=== PATIENT | male | born 1975 | race Caucasian/White ===

== ENCOUNTER 2016-09-30 07:27 | Observation (INO) | payer BC ==
--- NOTE | 2016-09-30 08:03 | ERNOTE ---
Abdominal HPI - General Chief Complaint: Abdominal Pain Time Seen by Provider: 09/30/16 07:57 Source: patient Exam Limitations: no limitations - Immun/Allergies/Home Medications Immunizatons: IMMUNIZATION HX Immunizations Up to Date Yes History of Influenza Vaccine Yes Hx Pneumococcal Vaccination No Allergies/Adverse Reactions: Allergies No Known Allergies Allergy (Verified 09/30/16 07:43) Home Medications: HOME MEDICATIONS Cetirizine HCl [Wal-Zyr] 10 mg PO DAILY 09/30/16 [Last Taken Unknown] Cholecalciferol (Vitamin D3) [Vitamin D] 2,000 unit PO DAILY 09/30/16 [Last Taken Unknown] Gabapentin [Neurontin] 600 mg PO DAILY 09/30/16 [Last Taken Unknown] Insul NPH Hu Rec/Ins Rg Hu Rec [Novolin 70/30 100U/ml] 25 units SQ ACHS [Last Taken Unknown] Insulin Glargine,Hum.rec.anlog [Lantus] 50 units SC DAILY 09/30/16 [Last Taken Unknown] Losartan Potassium [Cozaar] 25 mg PO DAILY 09/30/16 [Last Taken Unknown] - History of Present Illness Narrative: Here for right lower quadrant abdominal pain for four days, in addition to loose stools and today diarrhea which patient states was watery. Abdominal pain is approximately 3-7 varying degrees based on movement denies any nausea or vomiting Review of Systems - Review of Systems Constitutional: Present: no symptoms reported EYE: Present: no symptoms reported ENT: Present: no symptoms reported Respiratory: Present: no symptoms reported Cardiology: Present: no symptoms reported Gastrointestinal/Abdominal: Present: See HPI Genitourinary: Present: no symptoms reported Musculoskeletal: Present: no symptoms reported - Patient's Past Medical History Patient History - Medical: Diabetes Type 1 Patient History - Cardiac/Respiratory: Hypertension Patient History - Cancer: No Hx of Cancer Patient History - Surgical Procedures: Back Surgery Patient History - Other: None - Social History Living Situations: home Abuse History: No History of abuse Psych History: No pertinent hx Smoking Status: Never smoker Alcohol Use: none Drug Use: none - Immunizations Immunizations Up to Date: Yes Hx Pneumococcal Vaccination: No History of Influenza Vaccine: Yes Physical Exam - Physical Exam General Appearance: Present: wd/wn, alert, no apparent distress Neck: Present: normal inspection Respiratory: Present: no respiratory distress, normal breath sounds, no accessory muscle use, chest nontender, lungs clear Cardiovascular/Chest: Present: regular rate, rhythm, no murmur, normal peripheral pulses Gastrointestinal/Abdominal: Present: normal bowel sounds, other - abdomen is diffusely tender but worse in the right lower quadrant of the abdomen patient has direct tenderness and rebound tenderness. He is not guarding bili is obese and examination is slightly difficult. ED Progress - Results and Orders Patient's Lab Results:: I have reviewed the patient's lab results. - Vital Signs Patient's Vital Signs:: I have reviewed the patient's vital signs. Vital Signs: Vital Signs 09/30/16 07:30 Temperature 36.6 C Pulse Rate 90 Respiratory 16 Rate Blood Pressure 122/77 O2 Sat by Pulse 98 Oximetry - CT/Ultrasound CT/Ultrasound Narrative: CT is read as acute appendicitis - Progress/Reassessment Chief Complaint: Abdominal Pain Plan - Plan Plan: PT has acute appendicitis and Dr. Khan was consulted regarding this patient and pt will be admitted for appendectomy Departure - Departure Clinical Impression: Acute appendicitis Qualifiers: Acute appendicitis type: unspecified acute appendicitis type Qualified Code(s) : K35.80 - Unspecified acute appendicitis Disposition: Home self-care Condition: Good Referrals: Loc Boswell MD [Primary Care Provider] -
--- OUTSIDE RECORDS SUMMARY | 2016-09-30 08:07 | XMS REPORT | Summary of Care ---
:1975 Author Organization [facility] Address [address] [place] [address] Care Team Providers Name Role Phone Loc Boswell Primary Care Physician Encounter Date(s): 08/10/16 - 08/10/16 [facility], [address] [place], [place] [address] Discharge Diagnosis: Type 2 diabetes mellitus with mild nonproliferative diabetic retinopathy with macular edema, right eye Discharge Disposition: 01 Discharged to Home or Self Care Attending Physician: Shay Campuzano MD Referring Physician: Shay Campuzano MD Vital Signs Most recent to oldest [Reference Range]: 1 Peripheral Pulse Rate [60-100 bpm] 88 bpm (08/10/16 10:29 AM) Blood Pressure [90-130/60-90 mmHg] 122/78mmHg (08/10/16 10:29 AM) Systolic Blood Pressure [90-130 mmHg] 126 mmHg (08/10/16 10:29 AM) Diastolic Blood Pressure [60-90 mmHg] 76 mmHg (08/10/16 10:29 AM) Mean Arterial Pressure, Cuff 93 mmHg (08/10/16 10:29 AM) Problem List Condition Effective Dates Status Health Status Informant Diabetes mellitus type 1(Confirmed) Active Hypertension(Confirmed) Active Allergies, Adverse Reactions, Alerts No Known Medication Allergies Medications cetirizine 10 mg oral tablet 1 tab(s), Oral, Daily, 0 Refill(s), Start Date: 06/30/16 16:07:00 CDT Start Date: 06/30/16 Status: OrderedClaritin 10 mg, 0 Refill(s), Start Date: 07/12/15 8:52:00 CDT Start Date: 07/12/15 Stop Date: 06/30/16 Status: CompletedEylea (office) 2 mg, Intravitreal, ONETIME, First Dose: 08/10/16 11:00:00 CDT, Stop Date: 08/10 11:00:00 CDT, Diagnosis: Type 2 diabetes mellitus with moderate nonproliferative diabetic retinopathy with macular edema, left eye Start Date: 08/10/16 Stop Date: 08/10/16 Status: Completedgabapentin 600 mg oral tablet 1 tab(s), Oral, TID, 0 Refill(s), Start Date: 07/12/15 8:51:00 CDT Start Date: 07/12/15 Status: OrderedLantus 50u, Subcutaneous, Daily, 0 Refill(s), Start Date: 06/30/16 16:06:00 CDT Start Date: 06/30/16 Status: Orderedlisinopril 5 mg oral tablet 1 tab(s), Oral, Daily, 0 Refill(s), Start Date: 07/12/15 8:51:00 CDT Start Date: 07/12/15 Stop Date: 06/30/16 Status: Completedmultivitamin 1 tab(s), Oral, Daily, 0 Refill(s), Start Date: 07/12/15 8:51:00 CDT Start Date: 07/12/15 Stop Date: 06/30/16 Status: CompletedNovoLIN 70/30 35u, Subcutaneous, BID, 0 Refill(s), Start Date: 06/30/16 16:06:00 CDT Start Date: 06/30/16 Status: OrderedNovoLIN 70/30 Subcutaneous, 0 Refill(s), Start Date: 07/12/15 8:53:00 CDT Start Date: 07/12/15 Status: OrderedViagra 100 mg oral tablet 1 tab(s), Oral, As Indicated, PRN erectile dysfunction, 1 hour before sexual activity, # 18 tab(s), 3 Refill(s), Start Date: 05/11/16 10:05:09 CDT, Pharmacy : [facility] Special Instructions: 1 hour before sexual activity Start Date: 05/11/16 Status: OrderedViagra 100 mg oral tablet 1 tab(s), Oral, As Indicated, PRN erectile dysfunction, 1 hour before sexual activity, # 6 tab(s), 0 Refill(s), Start Date: 02/24/16 15:18:00 PARENT 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, Pharmacy: [facility] Special Instructions: 1 hour before sexual activity Start Date: 02/24/16 Stop Date: 05/11/16 Status: CompletedVitamin D3 2000 intl units oral tablet 1 tab(s), Oral, TID, 0 Refill(s), Start Date: 06/30/16 16:07:00 CDT Start Date: 06/30/16 Status: Orderedvitamin E Oral, Daily, 0 Refill(s), Start Date: 07/12/15 8:52:00 CDT Start Date: 07/12/15 Stop Date: 06/30/16 Status: Completed Results No data available for this section Immunizations No data available for this section Procedures Procedure Date Related Diagnosis Body Site Repair of retina 10/28/15 Laminectomy with excision of herniated 2000 intervertebral disc, nucleus pulposus Social History No data available for this section Assessment and Plan No data available for this section
--- OUTSIDE RECORDS SUMMARY | 2016-09-30 08:07 | XMS REPORT | Summary of Care ---
:1975 Author Organization [facility] Address [address] [place] [address] Care Team Providers Name Role Phone Loc Boswell Primary Care Physician Encounter Date(s): 03/24/16 - 03/24/16 [facility], [address] [place], [place] [address] Discharge Diagnosis: Type 2 diabetes mellitus with moderate nonproliferative diabetic retinopathy with macular edema, bilateral Discharge Diagnosis: Macular puckering of retina Discharge Disposition: 01 Discharged to Home or Self Care Attending Physician: Shay Campuzano MD Referring Physician: Shay Campuzano MD Vital Signs Most recent to oldest [Reference Range]: 1 2 Peripheral Pulse Rate [60-100 bpm] 98 bpm (03/24/16 5:14 PM) Systolic Blood Pressure [90-130 mmHg] 133 mmHg 142 mmHg *HI* *HI* (03/24/16 5:14 PM) (03/24/16 5:14 PM) Diastolic Blood Pressure [60-90 mmHg] 87 mmHg 81 mmHg (03/24/16 5:14 PM) (03/24/16 5:14 PM) Mean Arterial Pressure, Cuff 102 mmHg (03/24/16 5:14 PM) Problem List Condition Effective Dates Status Health Status Informant Diabetes mellitus type 1(Confirmed) Active Hypertension(Confirmed) Active Allergies, Adverse Reactions, Alerts No Known Medication Allergies Medications Avastin (office) 1.25 mg, Intraocular, ONETIME, First Dose: 03/24/16 17:00:00 CLINICAL NURSING INSTRUCTOR, Stop Date: 17:00:00 CLINICAL NURSING INSTRUCTOR, Diagnosis: Type 2 diabetes mellitus with moderate nonproliferative diabetic retinopathy with macularedema, bilateral Start Date: 03/24/16 Stop Date: 03/24/16 Status: CompletedClaritin 10 mg, 0 Refill(s), Start Date: 07/12/15 8:52:00 CDT Start Date: 07/12/15 Status: Orderedgabapentin 600 mg oral tablet 1 tab(s), Oral, TID, 0 Refill(s), Start Date: 07/12/15 8:51:00 CDT Start Date: 07/12/15 Status: Orderedlisinopril 5 mg oral tablet 1 tab(s), Oral, Daily, 0 Refill(s), Start Date: 07/12/15 8:51:00 CDT Start Date: 07/12/15 Status: Orderedmultivitamin 1 tab(s), Oral, Daily, 0 Refill(s), Start Date: 07/12/15 8:51:00 CDT Start Date: 07/12/15 Status: OrderedNovoLIN 70/30 Subcutaneous, 0 Refill(s), Start Date: 07/12/15 8:53:00 CDT Start Date: 07/12/15 Status: OrderedViagra 100 mg oral tablet 1 tab(s), Oral, As Indicated, PRN erectile dysfunction, 1 hour before sexual activity, # 6 tab(s), 0 Refill(s), Start Date: 02/24/16 15:18:00 CLINICAL NURSING INSTRUCTOR, Pharmacy: [facility] Start Date: 02/24/16 Status: Orderedvitamin E Oral, Daily, 0 Refill(s), Start Date: 07/12/15 8:52:00 CDT Start Date: 07/12/15 Status: Ordered Results No data available for this section Immunizations No data available for this section Procedures Procedure Date Related Diagnosis Body Site Repair of retina 10/28/15 Laminectomy with excision of herniated 2000 intervertebral disc, nucleus pulposus Social History No data available for this section Assessment and Plan No data available for this section
--- OUTSIDE RECORDS SUMMARY | 2016-09-30 08:07 | XMS REPORT | Summary of Care ---
:1975 Author Organization [facility] Address [address] [place] [address] Care Team Providers Name Role Phone Loc Boswell Primary Care Physician Encounter Date(s): 06/02/16 - 06/02/16 [facility], [address] [place], [place] [address] Discharge Diagnosis: Type 2 diabetes mellitus with mild nonproliferative diabetic retinopathy with macular edema, right eye Discharge Disposition: 01 Discharged to Home or Self Care Attending Physician: Shay Campuzano MD Referring Physician: Shay Campuzano MD Vital Signs Most recent to oldest [Reference Range]: 1 Peripheral Pulse Rate [60-100 bpm] 91 bpm (06/02/16 11:35 AM) Blood Pressure [90-130/60-90 mmHg] 177/80mmHg *HI* (06/02/16 11:35 AM) Systolic Blood Pressure [90-130 mmHg] 109 mmHg (06/02/16 11:35 AM) Diastolic Blood Pressure [60-90 mmHg] 79 mmHg (06/02/16 11:35 AM) Mean Arterial Pressure, Cuff 112 mmHg (06/02/16 11:35 AM) Problem List Condition Effective Dates Status Health Status Informant Diabetes mellitus type 1(Confirmed) Active Hypertension(Confirmed) Active Allergies, Adverse Reactions, Alerts No Known Medication Allergies Medications Avastin (office) 1.25 mg, Intraocular, ONETIME, First Dose: 06/02/16 12:00:00 CDT, Stop Date: 09/11 12:00:00 CDT, Diagnosis: Type 2 diabetes mellitus with moderate nonproliferative diabetic retinopathy with macularedema, left eye Start Date: 06/02/16 Stop Date: 06/02/16 Status: CompletedClaritin 10 mg, 0 Refill(s), Start [...] Start Date: 05/11/16 10:05:09 CDT, [facility] Special Inst[facility]: 1 hour before sexual activity Start Date: 05/11/16 Status: OrderedViagra 100 mg oral tablet 1 tab(s), Oral, As Indicated, PRN erectile dysfunction, 1 hour before sexual activity, # 6 tab(s), 0 Refill(s), Start Date: 02/24/16 15:18:00 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
--- OUTSIDE RECORDS SUMMARY | 2016-09-30 08:07 | XMS REPORT | Summary of Care ---
:1975 Author Organization [facility] Address [address] [place] [address] [address] [place] [address] Care Team Providers Name Role Phone Loc Boswell Primary Care Physician Encounter Date(s): 06/30/16 - 06/30/16 [facility], [address] [place], [place] 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 Discharge Disposition: 01 Discharged to Home or Self Care Attending Physician: Shay Campuzano MD Referring Physician: Shay Campuzano MD Vital Signs No data available for this section Problem List Condition Effective Dates Status Health Status Informant Diabetes mellitus type 1(Confirmed) Active Hypertension(Confirmed) Active Allergies, Adverse Reactions, Alerts No Known Medication Allergies Medications cetirizine 10 mg oral tablet 1 tab(s), Oral, Daily, 0 Refill(s), Start Date: 06/30/16 16:07:00 CDT Start Date: 06/30/16 Status: OrderedClaritin 10 mg, 0 Refill(s), Start Date: 07/12/15 8:52:00 CDT Start Date: 07/12/15 Stop Date: 06/30/16 Status: Completedgabapentin 600 mg oral tablet 1 [...] Start Date: 05/11/16 10:05:09 CDT, [facility] : [facility] Special Instructions: 1 hour before sexual activity Start Date: 05/11/16 Status: OrderedViagra 100 mg oral tablet 1 tab(s), Oral, As Indicated, PRN erectile dysfunction, 1 hour before sexual activity, # 6 tab(s), 0 Refill(s), Start Date: 02/24/16 15:18:00 PETROPHYSICAL ENGINEER, Pharmacy: [facility] Special Instructions: 1 hour before sexual [...]
--- OUTSIDE RECORDS SUMMARY | 2016-09-30 08:07 | XMS REPORT | Summary of Care ---
:1975 Author Organization [facility] Address [address] [place] [address] Care Team Providers Name Role Phone Loc Boswell Primary Care Physician Encounter Date(s): 05/05/16 - 05/05/16 [facility], [address] [place], [place] [address] Discharge Diagnosis: Type 2 diabetes mellitus with moderate nonproliferative diabetic retinopathy with macular edema, left eye Discharge Diagnosis: Type 2 diabetes mellitus with mild nonproliferative diabetic retinopathy without macular edema, right eye Discharge Diagnosis: Type 2 diabetes mellitus with diabetic cataract Discharge Diagnosis: Myopia of both eyes with astigmatism and presbyopia Discharge Disposition: 01 Discharged to Home or Self Care Attending Physician: Shay Campuzano MD Referring Physician: Shay Campuzano MD Vital Signs No data available for this section Problem List Condition Effective Dates Status Health Status Informant Diabetes mellitus type 1(Confirmed) Active Hypertension(Confirmed) Active Allergies, Adverse Reactions, Alerts No Known Medication Allergies Medications Claritin 10 mg, 0 Refill(s), Start Date: 07/12/15 [...] 0 Refill(s), Start Date: 02/24/16 15:18:00 CLINICAL ABSTRACTOR, Pharmacy: [facility] Special Instructions: 1 hour before sexual activity Start Date: 02/24/16 Status: Orderedvitamin E Oral, [...]
[2016-09-30] MEDS ORDERED: DIATRIZOATE MEGLUMINE, SODIUM 30 ML BTL ONE (08:12)
[2016-09-30] MEDS ORDERED: DIATRIZOATE MEGLUMINE, SODIUM 30 ML BTL PO ONE (08:20)
[2016-09-30 08:22] LABS: Hematocrit 37.1 % (42.0-52.0); Hemoglobin 12.8 gm/dL (13.5-18.0); Mean Cell Volume 87.5 fl (78-100); Mean Corpuscular Hemoglobin 30.2 pg (27-31); Mean Corpuscular Hgb Conc 34.5 g/dl (32-36); Mean Platelet Volume 10.8 fl (6.0-9.5); Neutrophil # 15.8 K/mm3 (1.3-6.0); Neutrophil % 84.4 % (42-75.0); Platelet Count 225 K/mm3 (150-450); Red Blood Count 4.24 M/mm3 (4.7-6.0); Red Cell Distribution Width 12.2 % (11.5-14.0); White Blood Count 18.8 K/mm3 (4.0-10.5)
[2016-09-30 08:36] LABS: Albumin * 3.4 gm/dl (3.4-5.0); Anion Gap 13.1 mmol/L (6.8-13.8); BUN/Creatinine Ratio 14.5 (9.0-21.6); Bilirubin, Total 0.6 mg/dL (0.0-1.1); Ca. Corrected For Albumin 8.8 mg/dL (8.4-10.2); Calcium * 8.6 mg/dL (7.9-10.9); Carbon Dioxide 27.1 mmol/L (24-32.6); Potassium 4.2 mmol/L (3.4-4.6); Total Protein 7.3 gm/dL (6.2-8.2)
[2016-09-30] MEDS ORDERED: CEFOXITIN SODIUM 2 GM in DEXTROSE 5 % IN WATER 100 ML IV ONE ×2 (10:50)
--- NOTE | 2016-09-30 11:09 | HP ---
Chief Complaint - Chief Complaint Date of Service: 09/30/16 Time of Service: 11:00 Chief Complaint: acute appendicitis History of Present Illness: Started with abdominal pain on 09/27/16. Continued on Sunday and he was constipated so took laxative. He got a little better on snd Sunday, but then worse again today. Last meal yesterday. Drank contrast for CT this AM. He is tender RLQ with rebound and has elevated WBC with CT scan findings of acute appendicitis - Patient's Past Medical History Patient History - Medical: Diabetes Type 1 Patient History - Cardiac/Respiratory: Hypertension Patient History - Cancer: No Hx of Cancer Patient History - Surgical Procedures: Back Surgery Patient History - Other: None - Family History Family History:: no untoward family reactions to anesthesia, no familial bleeding tendencies - Social History Living Situations: home Abuse History: No History of abuse Psych History: No pertinent hx Smoking Status: Never smoker Alcohol Use: none Drug Use: none - Immunizations Immunizations Up to Date: Yes Hx Pneumococcal Vaccination: No History of Influenza Vaccine: Yes Review Of Systems (GEN) - Review of Systems Generalized/Overall Review: Present: Fever, Fatigue EENTM: Present: No Symptoms Reported Respiratory: Present: No Symptoms Reported Cardiac: Present: No Symptoms Reported Abdominal: Present: Abdominal Pain, Constipation Genitourinary: Present: No Symptoms Reported Musculoskeletal: Present: No Symptoms Reported, Other - Dupuytren's left 4th finger Neurological: Present: No Symptoms Reported Skin: Present: Lesions - right elbow Immunizations: IMMUNIZATION HX Immunizations Up to Date Yes History of Influenza Vaccine Yes Hx Pneumococcal Vaccination No Allergies/Adverse Reactions: Allergies Allergy/AdvReac Type Severity Reaction Status Date / Time No Known Allergies Allergy Verified 09/30/16 07:43 Home Medications: HOME MEDICATIONS Cetirizine HCl [Wal-Zyr] 10 mg PO DAILY 09/30/16 [Last Taken Unknown] Cholecalciferol (Vitamin D3) [Vitamin D] 2,000 unit PO DAILY 09/30/16 [Last Taken Unknown] Gabapentin [Neurontin] 600 mg PO DAILY 09/30/16 [Last Taken Unknown] Insul NPH Hu Rec/Ins Rg Hu Rec [Novolin 70/30 100U/ml] 25 units SQ ACHS [Last Taken Unknown] Insulin Glargine,Hum.rec.anlog [Lantus] 50 units SC DAILY 09/30/16 [Last Taken Unknown] Losartan Potassium [Cozaar] 25 mg PO DAILY 09/30/16 [Last Taken Unknown] Exam - Exam Vital Signs: Vital Signs - Last Taken Temp 36.6 C 09/30/16 07:30 Pulse 83 09/30/16 10:26 Resp 16 09/30/16 10:26 BP 141/75 09/30/16 10:26 Pulse Ox 98 09/30/16 10:26 Constitutional: Present: Alert, Oriented x3, Cooperative, Mild distress ENT Exam: Present: normal ENT inspection Eye Exam: bilateral eye: normal inspection Neck: Present: full range of motion, normal inspection Back Exam: Present: normal inspection, no CVA tenderness Respiratory: Present: lungs clear, normal breath sounds, other - limited excursion Cardiovascular/Chest: Present: normal peripheral pulses, regular rate, rhythm, no murmur Peripheral Pulses: dorsalis-pedis (R): 4+, dorsalis-pedis (L): 4+, radial (R): 4 +, radial (L): 4+ Abdomen: Present: rebound tenderness - RLQ /Rectal: Present: Exam deferred Extremity: Present: normal range of motion, normal inspection, no pedal edema, no calf tenderness Skin Exam: Present: pallor Neurologic: Present: import export clerk II-XII nml as tested, normal cerebellar test, no motor/ sensory deficits Appearance: Present: appropriate appearance, appropriate insight Eye contact: Present: cooperative, good eye contact, normal speech Thoughts: Present: normal thought pattern Diagnostic Studies: Abnormal Lab Results 09/30/16 09/30/16 Range/Units 07:58 08:24 WBC 18.8 H (4.0-10.5) K/mm3 RBC 4.24 L (4.7-6.0) M/mm3 Hgb 12.8 L (13.5-18.0) gm/dL Hct 37.1 L (42.0-52.0) % MPV 10.8 H (6.0-9.5) fl Immature Gran % (Auto) 0.50 H (0.001-0.429) % Immature Gran # (Auto) 0.09 H (0.000-0.0310) K/mm3 Neutrophils % 84.4 H (42-75.0) % Lymphocytes % 6.7 L (20-51) % Neutrophils # 15.8 H (1.3-6.0) K/mm3 Lymphocytes # 1.3 L (1.5-3.5) k/mm3 Monocytes # 1.5 H (0.0-1.0) k/mm3 Random Glucose 156 H (70-110) mg/dL Laboratory Results WBC 18.8 K/mm3 (4.0-10.5) H 09/30/16 07:58 RBC 4.24 M/mm3 (4.7-6.0) L 09/30/16 07:58 Hgb 12.8 gm/dL (13.5-18.0) L 09/30/16 07:58 Hct 37.1 % (42.0-52.0) L 09/30/16 07:58 MCV 87.5 fl (78-100) 09/30/16 07:58 MCH 30.2 pg (27-31) 09/30/16 07:58 MCHC 34.5 g/dl (32-36) 09/30/16 07:58 RDW 12.2 % (11.5-14.0) 09/30/16 07:58 Plt Count 225 K/mm3 (150-450) 09/30/16 07:58 MPV 10.8 fl (6.0-9.5) H 09/30/16 07:58 Immature Gran % (Auto) 0.50 % (0.001-0.429) H 09/30/16 07:58 Immature Gran # (Auto) 0.09 K/mm3 (0.000-0.0310) H 09/30/16 07:58 Neutrophils % 84.4 % (42-75.0) H 09/30/16 07:58 Lymphocytes % 6.7 % (20-51) L 09/30/16 07:58 Monocytes % 7.7 % (0.0-9) 09/30/16 07:58 Eosinophils % 0.4 % (0.0-3.0) 09/30/16 07:58 Basophils % 0.3 % (0.0-1.0) 09/30/16 07:58 Nucleated RBC % 0.0 k/mm3 (0-1) 09/30/16 07:58 Neutrophils # 15.8 K/mm3 (1.3-6.0) H 09/30/16 07:58 Lymphocytes # 1.3 k/mm3 (1.5-3.5) L 09/30/16 07:58 Monocytes # 1.5 k/mm3 (0.0-1.0) H 09/30/16 07:58 Eosinophils # 0.1 k/mm3 (0.0-0.7) 09/30/16 07:58 Absolute Basophils 0.1 k/mm3 (0.0-0.1) 09/30/16 07:58 Sodium 139 mmol/L (132-142) 09/30/16 08:24 Plasma Sodium 140 mmol/L (130-142) 09/30/16 08:24 Potassium 4.2 mmol/L (3.4-4.6) 09/30/16 08:24 Chloride 103 mmol/L (97-106) 09/30/16 08:24 Carbon Dioxide 27.1 mmol/L (24-32.6) 09/30/16 08:24 Anion Gap 13.1 mmol/L (6.8-13.8) 09/30/16 08:24 BUN 17 mg/dL (6-23) 09/30/16 08:24 Creatinine 1.17 mg/dL (0.4-1.4) 09/30/16 08:24 Est GFR (Non-Af Amer) 72 mL/min (60-130) D 09/30/16 08:24 BUN/Creatinine Ratio 14.5 (9.0-21.6) 09/30/16 08:24 Random Glucose 156 mg/dL (70-110) H 09/30/16 08:24 Calcium 8.6 mg/dL (7.9-10.9) 09/30/16 08:24 Calcium Adj for Albumin 8.8 mg/dL (8.4-10.2) 09/30/16 08:24 Total Bilirubin 0.6 mg/dL (0.0-1.1) 09/30/16 08:24 AST 24 U/L (0-48) 09/30/16 08:24 ALT 38 U/L (19-67) 09/30/16 08:24 Alkaline Phosphatase 134 U/L (50-170) 09/30/16 08:24 Total Protein 7.3 gm/dL (6.2-8.2) 09/30/16 08:24 Albumin 3.4 gm/dl (3.4-5.0) 09/30/16 08:24 Assessment/Plan - Assessment/Plan (1) Acute appendicitis Assessment: Discussed appendectomy (laparoscopic or open) risks and expected course explained. Questions answered to his apparent satisfaction and informed consent obtained for appendectomy. SCD's, chlorhexidine wipes, IV Mefoxin pre-op Problem: Acute Qualifiers: Acute appendicitis type: unspecified acute appendicitis type Qualified Code (s): K35.80 - Unspecified acute appendicitis
[2016-09-30] MEDS ORDERED: RINGER'S SOLUTION,LACTATED 1,000 ML IV ONE ×2 (11:35→13:39)
[2016-09-30] MEDS ORDERED: INSULIN REGULAR, HUMAN 100 UNITS/ML VIAL IV ONE (11:35)
[2016-09-30] MEDS ORDERED: HYDROmorphone HCL 2 MG/ML VIAL IV PRN (11:36)
[2016-09-30] MEDS ORDERED: PROMETHAZINE HCL 12.5 MG in DEXTROSE 5 % IN WATER 50 ML IV PRN ×2 (11:36)
[2016-09-30] MEDS ORDERED: NALOXONE HCL 0.4 MG/ML VIAL IV PRN (11:36)
[2016-09-30] MEDS ORDERED: diphenhydrAMINE HCL 50 MG/ML VIAL IV PRN (11:36)
[2016-09-30] MEDS ORDERED: MUPIROCIN 22 APPL TUBE TP ONE (12:18)
[2016-09-30] MEDS ORDERED: BUPIVACAINE HCL/EPINEPHRINE 50 ML VIAL IJ ONE ×2 (12:18)
[2016-09-30] MEDS ORDERED: ONDANSETRON HCL/PF 2 MG/ML VIAL IV PRN (13:16)
[2016-09-30] MEDS ORDERED: MORPHINE SULFATE 4 MG/ML SYRG IV PRN (13:16)
[2016-09-30] MEDS: RINGER'S SOLUTION,LACTATED 1,000 ML IV PRN (13:52)
--- NOTE | 2016-09-30 14:39 | OR ---
Operative Report - Dictated Report Narrative: Date of operation 09/30/2016 Preoperative diagnosis: Acute appendicitis Postoperative diagnosis: Advanced acute appendicitis with localized peritonitis Operation: Laparoscopic appendectomy Surgeon: DANIEL Khan MD Anesthesia: Gen. hiro Vance CRNA Indications for procedure: The patient is a 41-year-old male with presented to the emergency room with a history of abdominal pain which started on 09/27/16. He was found to have an elevated white blood cell count, right lower quadrant tenderness, and CT scan evidence of acute appendicitis Findings: Advanced acute appendicitis with localized peritonitis Narrative of procedure: The patient was identified preoperatively, and prior to the administration of anesthetic a multidisciplinary timeout was observed. The patient was placed supine, SCDs were applied, and 2 g of intravenous Mefoxin administered. General endotracheal anesthetic was administered. The patient's abdomen was prepped with Betadine solution, and a generous operating field outlined with 4 sterile towels. The remainder the patient was covered with a sterile disposable drape. A transverse infraumbilical skin incision was made, and dissection was carried along the umbilical stalk until the fascia of the linea alba was encountered. This was incised. The peritoneum was elevated and incised to allow entry into the abdomen under direct vision. A Hussan cannula was placed and the abdomen insufflated with CO2. The laparoscopic camera was introduced and the abdomen briefly explored. Those portions of the liver, stomach, gallbladder, small bowel and colon visualized appeared normal. The omentum was adherent to the right lower quadrant sidewall. Next under direct vision, 2 additional working ports were inserted through separate skin incisions, one in the suprapubic area one in the left lower quadrant. The omentum was swept medially to reveal the tip of an acutely inflamed appendix. The appendix was elevated and inspected. There were gangrenous changes in the mid to proximal appendix with fibrinous adhesions to the terminal ileum and right lateral peritoneum. The peritoneal attachments of the cecum were divided to allow mobilization medially to expose the base of the appendix. A window was created adjacent to the appendiceal base which was then transected with a laparoscopic SERENE stapling device. The stump of the appendix was seen to be hemostatic and gas and liquid tight. The mesoappendix was gradually dissected by blunt dissection as the appendix was elevated. The base of the mesoappendix was divided with an application of a SERENE laparoscopic stapling device. It was seen to be hemostatic. The appendix was placed in an Endobag and parked in the right lower quadrant. The right lower quadrant was then irrigated with saline and suctioned clean. Hemostasis appeared complete. The pelvis was suctioned clean. The small working ports were then withdrawn under direct vision to ensure entry site hemostasis. The appendix was removed in conjunction with the Hussan cannula. The pneumoperitoneum was allowed to escape, and after receiving a correct sponge needle and instrument count attention was turned to closing the abdomen. The fascia and peritoneum at the umbilicus were approximated with interrupted sutures of #1 Vicryl. Skin incisions were approximated with interrupted vertical mattress sutures of 4-0 nylon. The operative sites were washed and dried. Dressings of Bactroban ointment and large Band-Aids were applied to the small port sites. The umbilical incision was dressed with Bactroban ointment, 2 x 2, large Band-Aid, and Medipore tape. The operative procedure was terminated at this point. There was no measurable blood loss. 0.5% Marcaine with epinephrine was used for local anesthetic infiltration area the appendix was submitted to pathology. The patient tolerated the anesthetic and procedure well without complication and was transferred to the recovery room awake, extubated, and in stable condition. Reviewed and electronically signed
[2016-09-30] MEDS: CEFOXITIN SODIUM 2 GM in DEXTROSE 5 % IN WATER 100 ML IV SCH ×4 (14:43→20:51)
[2016-09-30] MEDS: PANTOPRAZOLE SODIUM 40 MG in NORMAL SALINE 100 ML IV SCH (15:42)
[2016-09-30] MEDS: INSULIN REGULAR, HUMAN 100 UNITS/ML VIAL SC SCH ×2 (17:20→21:20)
[2016-09-30] MEDS: LOSARTAN POTASSIUM 50 MG TABLET PO SCH (22:19)
[2016-09-30] MEDS: GABAPENTIN 600 MG TABLET PO SCH (22:19)
[2016-10-01] MEDS: CEFOXITIN SODIUM 2 GM in DEXTROSE 5 % IN WATER 100 ML IV SCH ×2 (01:26)
[2016-10-01] MEDS: oxyCODONE HCL/ACETAMINOPHEN 1 TAB TABLET PO PRN ×2 (05:35→11:58)
[2016-10-01] MEDS: RINGER'S SOLUTION,LACTATED 1,000 ML IV PRN (06:37)
[2016-10-01] MEDS: INSULIN REGULAR, HUMAN 100 UNITS/ML VIAL SC SCH ×2 (07:14→11:52)
[2016-10-01] MEDS: GABAPENTIN 600 MG TABLET PO SCH ×2 (08:13→12:55)
[2016-10-01] MEDS: LOSARTAN POTASSIUM 50 MG TABLET PO SCH (08:24)
[2016-10-01 08:26] VITALS: BP 115/56
[2016-10-01] MEDS ORDERED: GABAPENTIN 600 MG TABLET PO SCH (09:00)
[2016-10-01] MEDS: PANTOPRAZOLE SODIUM 40 MG in NORMAL SALINE 100 ML IV SCH (12:55)
--- NOTE | 2016-10-01 13:42 | DS ---
(1) Acute appendicitis Problem: Acute Qualifiers: Acute appendicitis type: unspecified acute appendicitis type Qualified Code (s): K35.80 - Unspecified acute appendicitis Description of Stay: Had uneventful laparoscopic appendectomy for acute appendicitis. VS remained normal. tolerated advanced diet and OOB without assistance. Dressings clean. Procedures Performed: see notes below - laparoscopic appendectomy Discharge Disposition: Home self care Disposition: Home self-care Condition: Good Discharge Activity: Activity as tolerated, No Lifting Discharge Diet: Consistent carbs Referrals: Loc Boswell MD [Primary Care Provider] - Problem Oriented Discharge Instructions to Patient/Family: Laparoscopic Appendectomy, Adult, Care After, [id number] Additional Patient Instructions (free text): to call [phone] on Sunday to make appointment for Prescriptions (Any new or edited meds): oxyCODONE HCL/ACETAMINOPHEN [Percocet 5 MG/325 MG] 2 tab PO Q4H PRN #20 tablet PRN Reason: Moderate Pain Complete Home Medications List: Complete Home Medication List: Cetirizine HCl [Wal-Zyr] 10 mg PO DAILY 09/30/16 Cholecalciferol (Vitamin D3) [Vitamin D3] 2,000 unit PO DAILY 09/30/16 Gabapentin [Neurontin] 600 mg PO TID 09/30/16 Insul NPH Hu Rec/Ins Rg Hu Rec [Novolin 70/30] 25 units SQ ACHS 09/30/16 Insulin Glargine,Hum.rec.anlog [Lantus] 50 units SC DAILY 09/30/16 Losartan Potassium [Cozaar] 25 mg PO DAILY 09/30/16 oxyCODONE HCL/ACETAMINOPHEN [Percocet 5 MG/325 MG] 2 tab PO Q4H PRN #20 tablet 10/01/16
[2016-10-01] MEDS ORDERED: LOSARTAN POTASSIUM 50 MG TABLET PO SCH (21:00)
== END 2016-10-01 14:08 | disposition home or self-care (01) ==
LOC: ER 07:27 → AMB 10:45 → MS 13:41
PROVIDERS: ADMIT Surgery; ATTEND Surgery
PROC: 0DTJ4ZZ Resection of Appendix, Percutaneous Endoscopic Approach (ICD-10-PCS; principal; 2016-09-30 11:24)
DX: K35.3 Acute appendicitis with localized peritonitis (principal); E10.9 Type 1 diabetes mellitus without complications; Z79.4 Long term (current) use of insulin; I10 Essential (primary) hypertension
CPT/HCPCS: 36415; 44970; 74177; 80053; 85025; 88304; 96365; 96366; 96372; 96375; 96376; 99284; G0378